=== PATIENT | male | born 1985 | race Caucasian/White ===

== ENCOUNTER 2020-12-05 13:12 | Emergency (ER) | payer OTHER, SELFPAY ==
[2020-12-05 13:15] VITALS: BP 174/83; PULSE 93; RESP 22; TEMP 36.8; O2SAT 98; BMI 47.2
--- NOTE | 2020-12-05 13:28 | DI.RAD.S_ITS ---
PROCEDURE: XR FINGER RT MIN 2V INDICATIONS: thumb vs table saw TECHNIQUE: AP hand, 2 views of the 1st finger(s) acquired. COMPARISON: None. FINDINGS: Bones: Acute oblique fracture through 1st distal phalangeal tuft is seen with minimal volar and distal displacement at fracture site. No suspicious bony lesions. Soft tissues: Laceration involving tip of the right thumb is seen. Small radiodensities within tip of right thumb soft tissue are seen, which may represent tiny foreign bodies. IMPRESSION: Oblique fracture through 1st distal phalangeal tuft. Laceration involving tip of right thumb with suggestion of tiny foreign bodies within soft tissue. Dictated by: Conner Dykes M.D. on 12/05/2020 at 13:52 Approved by: Conner Dykes M.D. on 12/05/2020 at 14:10
--- NOTE | 2020-12-05 13:28 | ED_ITS ---
HPI - Wound/Laceration General Chief Complaint: Wound/Laceration Stated Complaint: Cut finger, RT thumb Time Seen by Provider: 12/05/20 13:23 Source: patient Mode of arrival: Ambulatory Limitations: no limitations History of Present Illness HPI narrative: Patient is a 35-year-old male presents with right thumb injury. He injured it 45 minutes prior to her arrival with a table saw. He has no numbness or tingling. He is not on any anti-platelet or anticoagulation medication. He still has full range motion. Right hand dominant. Injury happened at home. Related Data Previous Rx's Medication Instructions Recorded cephalexin 500 mg capsule 500 mg PO TID 7 Days #21 cap 12/05/20 hydrocodone 5 mg-acetaminophen 325 1 tab PO Q6H PRN #10 tab 12/05/20 mg tablet Allergies Allergy/AdvReac Type Severity Reaction Status Date / Time No Known Drug Allergies Allergy Unverified 04/18/20 08:52 Review of Systems Review of Systems Narrative: GENERAL: Denies chills,fever HEENT: Denies throat pain RESPIRATORY: Denies dyspnea, cough, wheezing CARDIOVASCULAR: Denies chest pain, palpitations GASTROINTESTINAL: Denies nausea, vomiting MUSCULOSKELETAL: Denies extremity pain, injury SKIN: See HPI NEUROLOGIC: Denies weakness, dizziness, headache, numbness 8 point review of systems is negative except for those stated above and HPI Patient History Medical History (Updated 12/05/20 @ 15:23 by Franci Biswas DO) Acne (~2011) Allergies (~1989) Asthma (~1994) Body posture problem Bright red blood per rectum Bronchitis Chronic left shoulder pain (~2018) Eczema Establishing care with new doctor, encounter for Sebaceous cyst Surgical History (Updated 04/19/20 @ 21:57 by Rakel Wilson) Anesthesia Family History (Updated 04/19/20 @ 21:59 by Rakel Wilson) Father History of heart disease Grandfather History of heart disease Grandmother Cancer Grandfather Cancer Grandmother Cancer Social History Smoking Status: Current every day smoker Smoking Status: Current every day smoker tobacco type: cigarettes and vaping alcohol intake frequency: 0-2 drinks per day Substance Use Type: does not use Exam Initial Vital Signs Initial Vital Signs: Vital Signs Temperature 98.3 F 12/05/20 13:15 Pulse Rate 93 H 12/05/20 13:15 Respiratory Rate 22 12/05/20 13:15 Blood Pressure 174/83 H 12/05/20 13:15 Pulse Oximetry 98 12/05/20 13:15 GENERAL: Well-appearing, well-nourished and in no acute distress. CARDIOVASCULAR: peripheral pulses in tact, cap refill <2 sec RESPIRATORY: No respiratory distress, speaks in full sentences without difficulty [ABDOMEN: Soft, nontender, no guarding or rebound] EXTREMITIES: Normal range of motion, no clubbing or edema. Neurovascularly intact NEUROLOGICAL: Cranial nerves II through XII grossly intact. Normal gait and speech. SKIN: Right thumb laceration across distal palmar side is no nail bed involvement actually fairly good skin approximation Procedures Laceration Repair Laceration 1: Site: hand (thumb) Size (cm): 2 Description: irregular Local Anesthetic: lidocaine 1% Course Orders Ordered: ED Orders 12/05/20 13:28 XR finger RT min 2V Stat Discontinued Medications Lidocaine HCl (Lidocaine 1% (Pf)) 4 ml SUBCUT NOW ONE Stop: 12/05/20 13:35 Last Admin: 12/05/20 13:39 Dose: 4 ml Documented by: AJITH Vital Signs Vital signs: Vital Signs - 8 hr 12/05/20 13:15 12/05/20 15:25 Temperature 98.3 F Pulse Rate 93 H 75 Respiratory Rate 22 Blood Pressure 174/83 H 175/93 H Pulse Oximetry 98 98 Discharge Plan Departure Patient Disposition: Home Clinical Impression: Laceration of thumb Qualifiers: Encounter type: initial encounter Damage to nail status: without damage Foreign body presence: without foreign body Laterality: right Qualified Code(s): S61.011A - Laceration without foreign body of right thumb without damage to nail, initial encounter Fracture of thumb Qualifiers: Encounter type: initial encounter Fracture type: open Phalanx: distal Fracture alignment: displaced Laterality: right Qualified Code(s): S62.521B - Displaced fracture of distal phalanx of right thumb, initial encounter for open fracture Instructions: Finger Fracture, DI for Laceration Repair Activity Restrictions/Additional Instructions: *You have been diagnosed with right thumb fracture and laceration *What to do: At this time I would change dressing in 24 hours. Keep thumb clean and dry with soap and water. Recommend non stick pads to go directly over wound. Wear splint as needed well active. Extremely important to follow-up with orthopedic Keep elevated as needed *Continue to take medications as directed Keflex 500 mg 3 times a day for 7 days [place] 1 tab orally hours only needed for severe pain *Follow up with your primary care provider in 2-3 days *Return to ER if you should have increasing redness pus swelling pain numbness tingling or any new, worsening or concerning symptoms CONTROLLED SUBSTANCE DISCHARGE (Narcotoic/benzodiazepine/Flexeril/Phenergan) 1. You have been prescribed narcotic medications, it does have acetaminophen/Tylenol/paracetamol in it, DO NOT TAKE MORE THAN 4,00mg in 24 hours of Tylenol. TRAMADOL DOES NOT CONTAIN TYLENOL 2. Please understand that we cannot provide further refills of narcotics, benzodiazepines or controlled substances through the ED and her pain management will need to be through your provider. 3. While on these medications you cannot drive or operate heavy machinery. 4. You cannot sign legal documents or perform any duties such as this. 5. As long as you're taking opiate pain medications he should also be taking a stool softener such as Colace, Dulcolax, MiraLAX or prune juice, to help avoid constipation. Prescriptions: New cephalexin 500 mg capsule 500 mg PO TID 7 Days Qty: 21 RF: 0 hydrocodone-acetaminophen 5-325 mg tablet 1 tab PO Q6H PRN (Reason: pain) Qty: 10 RF: 0 Referrals: [facility] [Provider Group] Yu Diana MD [Physician] - Rosendo Boothe DO [Primary Care Provider] -
[2020-12-05] MEDS: LIDOCAINE 1% (PF) 4 ML SUBCUT (13:39)
[2020-12-05 15:25] VITALS: BP 175/93; PULSE 75; O2SAT 98
== END 2020-12-05 16:10 | disposition home or self-care (01) ==
PROVIDERS: Emergency Provider Emergency Medicine; PCP Family Medicine
CPT/HCPCS: 73140

== ENCOUNTER → 2022-03-05 07:05 | Outpatient (CLI) | payer OTHER, SELFPAY ==
[2022-03-05 08:03] LABS: Add Manual Diff / Slide Review NO; Basophils Absolute Auto 100 /uL (0-100); Basophils Percent Auto 2.6 % (0-2); Eosinophils Absolute Auto 300 /uL (0-450); Hematocrit 40.7 % (41-53); Hemoglobin 13.9 g/dL (13.5-17.5); Lymphocytes Absolute Auto 1600 /uL (1100-4500); Lymphocytes Percent Auto 37.9 % (25-40); Mean Corpuscular HGB Conc 34.1 % (30-36); Mean Corpuscular Hemoglobin 31.5 PG (26-34); Mean Corpuscular Volume 92.4 fL (80-100); Monocytes Absolute Auto 400 /uL (0-900); Monocytes Percent Auto 10.6 % (3-14); Neutrophils Absolute Auto 1800 /uL (1500-7000); Neutrophils Percent Auto 41.9 % (50-75); Platelet Count 206 X10^3/uL (150-400); Red Blood Cell Count 4.41 X10^6/uL (4.5-5.9); Red Cell Distribution Width 12.3 % (11.6-14.8); White Blood Cell Count 4.2 X10^3/uL (4.5-11.0)
[2022-03-05 08:38] LABS: Alanine Aminotransferase 32 IU/L (<50); Albumin 4.1 g/dL (3.5-5.0); Albumin Globulin Ratio 1.5 (1.0-2.8); Alkaline Phosphatase 30 U/L (38-126); Aspartate Aminotransferase 28 IU/L (17-59); BUN Creatinine Ratio 21.7 (6-22); Bilirubin Total 0.5 mg/dL (0.2-1.3); Blood Urea Nitrogen 18 mg/dL (9-20); Calcium 9.1 mg/dL (8.4-10.2); Carbon Dioxide 32 mmol/L (22-32); Chloride 98 mmol/L (98-107); Cholesterol 162 mg/dL (140-199); Estimated Glomerular Filt Rate > 60 mL/min (>60); Globulin 2.8 g/dL (1.7-4.1); Glucose 87 mg/dL (70-100); HDL Cholesterol 69 mg/dL (40-60); HEMOLYSIS < 15 (0-50); LDL Cholesterol Calculated 79 mg/dL (<100); Potassium 4.1 mmol/L (3.4-5.1); Sodium 139 mmol/L (137-145); Total Protein 6.9 g/dL (6.3-8.2); Triglycerides 70 mg/dL (35-150)
[2022-03-05 09:07] LABS: Thyroid Stimulating Hormone 2.69 uIU/mL (0.47-4.68)
[2022-03-07 09:27] LABS: Lipoprotein (a) <8.4 nmol/L (<75.0)
== END ==
PROVIDERS: PCP Family Medicine; Referring Provider Family Medicine; Visit Provider Family Medicine
DX: Z13.220 Encounter for screening for lipoid disorders (principal); Z13.29 Encounter for screening for other suspected endocrine disorder; Z13.1 Encounter for screening for diabetes mellitus; Z13.0 Encounter for screening for diseases of the blood and blood-forming organs and certain disorders involving the immune mechanism
CPT/HCPCS: 36415; 80053; 80061; 83695; 84443; 85025

== ENCOUNTER → 2023-10-26 10:13 | Outpatient (CLI) | payer OTHER, SELFPAY ==
--- NOTE | 2023-10-26 10:14 | DI.RAD.S_ITS ---
PROCEDURE: XR KNEE LT 3V INDICATIONS: Chronic left knee pain TECHNIQUE: 3 views of the knee were acquired. COMPARISON: None. FINDINGS: Bones: No fractures or dislocations. No suspicious bony lesions. No significant osteophytosis or joint space narrowing. Soft tissues: No joint effusion. No suspicious soft tissue calcifications. IMPRESSION: No acute bony abnormality or significant effusion. No significant osteoarthritis. Dictated by: Naveen Robbins M.D. on 10/26/2023 at 13:43 Approved by: Naveen Robbins M.D. on 10/26/2023 at 13:43
== END ==
PROVIDERS: PCP Family Medicine; Referring Provider Family Medicine; Visit Provider Family Medicine
DX: M25.562 Pain in left knee (principal); G89.29 Other chronic pain
CPT/HCPCS: 73562